=== PATIENT | male | born 1940 | race Caucasian/White ===

== ENCOUNTER 2021-08-29 14:05 | Inpatient (IN) | payer MEDICARE, OTHER ==
[~2021-08-29] VITALS: Ht 165.1 cm; Wt 75.0 kg
[2021-08-29] MEDS ORDERED: LORazepam 2 mg/ml vial IV ONE (14:10)
[2021-08-29 14:27] LABS: BASOPHILS % (AUTO) 0.5 % (0-1); EOSINOPHILS # (AUTO) 0.1 X10'3 (0-0.9); EOSINOPHILS % (AUTO) 1.1 % (0-6); HEMATOCRIT 32.8 % (42.0-52.0); LYMPHOCYTES # (AUTO) 1.5 X10'3 (1.1-4.8); MEAN CORPUSCULAR HEMOGLOBIN 34.7 PG (27.0-31.0); MEAN CORPUSCULAR HGB CONC 33.6 g/dL (33.0-36.5); MEAN CORPUSCULAR VOLUME 103.2 FL (78-98); MEAN PLATELET VOLUME 8.4 FL (7.4-10.4); MONOCYTES # (AUTO) 0.6 X10'3 (0-0.9); MONOCYTES % (AUTO) 6.3 % (2-12); NEUTROPHILS # (AUTO) 6.6 X10'3 (1.8-7.7); NEUTROPHILS % (AUTO) 75.1 % (42-75); PLATELET COUNT 236 X10'3 (140-440); RED BLOOD COUNT 3.18 X10'6 (4.70-6.10); RED CELL DISTRIBUTION WIDTH 13.7 % (11.5-14.5); WHITE BLOOD COUNT 8.8 X10'3 (4.5-11.0)
--- NOTE | 2021-08-29 14:36 | NUR ---
GWYN KUNZ (DAUGHTER) [phone]
[2021-08-29 14:39] LABS: ALANINE AMINOTRANSFERASE 12 U/L (12-78); ALBUMIN 3.9 G/DL (3.4-5.0); ALBUMIN/GLOBULIN RATIO 1.3 (1.1-1.5); ALKALINE PHOSPHATASE 52 IU/L (46-116); ANION GAP 20 (8-16); ASPARTATE AMINO TRANSFERASE 16 U/L (10-37); BILIRUBIN,TOTAL 0.5 MG/DL (0.1-1.0); BLOOD UREA NITROGEN 18 MG/DL (7-18); BUN/CREATININE RATIO 5.4 (5.4-32.0); CALCIUM 8.9 MG/DL (8.5-10.1); CHLORIDE 98 MMOL/L (99-107); CREATININE 3.35 MG/DL (0.60-1.10); GLUCOSE 164 MG/DL (70-104); SODIUM 140 MMOL/L (135-145); TOTAL CARBON DIOXIDE 22.4 MMOL/L (24-32); eGFR 18 ML/MIN
--- NOTE | 2021-08-29 14:40 | NUR ---
TO CT AT THIS TIME VIA [facility].
[2021-08-29 14:41] LABS: PLATELET ESTIMATE NORMAL; POTASSIUM 2.9 MMOL/L (3.5-5.1); TOTAL CELLS COUNTED 100
--- NOTE | 2021-08-29 15:00 | NUR ---
BACK FROM CT AT THIS TIME VIA [facility], NO SIGNS OF DISTRESS NOTED, VSS.
[2021-08-29] MEDS ORDERED: NITR0.4T51 SL (15:13)
[2021-08-29] MEDS ORDERED: ASPI-611 PO (15:13)
[2021-08-29] MEDS ORDERED: ISOS60TA71 PO (15:13)
[2021-08-29] MEDS ORDERED: CARB1TAB24 PO (15:13)
[2021-08-29] MEDS ORDERED: FLO0.4C PO (15:13)
[2021-08-29] MEDS ORDERED: FURO-149 PO (15:13)
[2021-08-29] MEDS ORDERED: CLOP75TA33 PO (15:13)
[2021-08-29] MEDS ORDERED: LOP12.5T PO (15:13)
[2021-08-29] MEDS ORDERED: ATOR40TA71 PO (15:13)
[2021-08-29] MEDS ORDERED: OMEP-50 PO (15:13)
[2021-08-29] MEDS ORDERED: CALC667T6 PO (15:13)
[2021-08-29] MEDS ORDERED: FINA5TAB11 PO (15:13)
[2021-08-29] MEDS ORDERED: magnesium 4gm in 100ml NS 100 ML IV PRN (16:40)
[2021-08-29] MEDS ORDERED: ondansetron/PF 4mg/2ml inj IV PRN (16:40)
[2021-08-29] MEDS ORDERED: magnesium Cl slow-release 64mg tablet PO PRN (16:40)
[2021-08-29] MEDS ORDERED: magnesium 2GM in 50ml NS 50 ML IV PRN (16:40)
[2021-08-29] MEDS ORDERED: potassium CL 10mEq/100ml bag 100 ML IV PRN (16:40)
[2021-08-29] MEDS ORDERED: potassium Cl 20 mEq SR tablet PO PRN (16:40)
[2021-08-29 16:44] LABS: CLARITY,URINE SLIGHTLY CLOUDY (Clear); GLUCOSE, URINE NEGATIVE (Neg); KETONES,URINE NEGATIVE (Neg); LEUKOCYTE ESTERASE ,URINE NEGATIVE (Neg); NITRITES, URINE NEGATIVE (Neg); OCCULT BLOOD,URINE MODERATE (Neg); PROTEIN,URINE 30 mg/dl (Neg); UROBILINOGEN,URINE 0.2 E.U/dL (0.2-1.0)
[2021-08-29 16:48] LABS: COLOR,URINE STRAW (Yellow); UA COLLECTION TYPE STRAIGHT CATH
[2021-08-29 16:50] LABS: SQUAMOUS EPITHELIAL CELL,UR FEW /LPF (FEW)
[2021-08-29 16:52] LABS: COARSE GRANULAR CAST 0-3 /LPF (NEGATIVE); FINE GRANULAR CAST 0-3 /LPF (NEGATIVE); RBC,URINE 0-2 /HPF (0-2); WBC,URINE 0-4 /HPF (0-4)
[2021-08-29 16:53] LABS: RENAL CELLS, URINE FEW /HPF; TRANSITIONAL EPI CELLS,URINE FEW /HPF
[2021-08-29 16:54] LABS: AMORPHOUS URATES 2+; MUCUS STRANDS FEW /LPF (Neg)
[2021-08-29] MEDS ORDERED: DONE-46 PO (16:54)
[2021-08-29 16:55] LABS: BACTERIA,URINE NONE SEEN /HPF (Neg)
[2021-08-29 16:58] LABS: MAGNESIUM 2.2 MG/DL (1.5-2.4)
--- NOTE | 2021-08-29 18:50 | NUR ---
PATIENT RESTING QUIETLY IN BED ON HIS SIDE, VITALS ARE STABLE AT THIS TIME.
[2021-08-29] MEDS: K and/or MAG REPLACEMENT MC SCH (20:00)
[2021-08-29 22:30] VITALS: BP 158/62
[2021-08-29] MEDS: potassium Cl 20 mEq SR tablet PO PRN (23:16)
[2021-08-30] VITALS (8 sets, daily range): BP systolic 106–209; BP diastolic 45–85
[2021-08-30] MEDS: potassium Cl 20 mEq SR tablet PO PRN (04:34)
[2021-08-30] MEDS: LORazepam 2 mg/ml vial IV PRN (04:34)
[2021-08-30 05:59] LABS: BASOPHILS % (AUTO) 0.3 % (0-1); EOSINOPHILS % (AUTO) 0.2 % (0-6); HEMATOCRIT 33.1 % (42.0-52.0); HEMOGLOBIN 11.4 g/dl (14.0-17.9); LYMPHOCYTES # (AUTO) 0.8 X10'3 (1.1-4.8); LYMPHOCYTES % (AUTO) 6.1 % (21-51); MEAN CORPUSCULAR HEMOGLOBIN 34.5 PG (27.0-31.0); MEAN CORPUSCULAR HGB CONC 34.4 g/dL (33.0-36.5); MEAN CORPUSCULAR VOLUME 100.2 FL (78-98); MEAN PLATELET VOLUME 8.7 FL (7.4-10.4); MONOCYTES # (AUTO) 1.1 X10'3 (0-0.9); NEUTROPHILS # (AUTO) 11.4 X10'3 (1.8-7.7); NEUTROPHILS % (AUTO) 85.4 % (42-75); PLATELET COUNT 228 X10'3 (140-440); RED CELL DISTRIBUTION WIDTH 13.7 % (11.5-14.5); WHITE BLOOD COUNT 13.4 X10'3 (4.5-11.0)
[2021-08-30 06:17] LABS: ALBUMIN 3.9 G/DL (3.4-5.0); ANION GAP 11 (8-16); BLOOD UREA NITROGEN 25 MG/DL (7-18); BUN/CREATININE RATIO 6.2 (5.4-32.0); CALCIUM 9.2 MG/DL (8.5-10.1); CHLORIDE 101 MMOL/L (99-107); CREATININE 4.05 MG/DL (0.60-1.10); GLUCOSE 103 MG/DL (70-104); POTASSIUM 3.7 MMOL/L (3.5-5.1); SODIUM 140 MMOL/L (135-145); TOTAL CARBON DIOXIDE 27.6 MMOL/L (24-32); eGFR 14 ML/MIN
--- NOTE | 2021-08-30 06:52 | NUR ---
Patient in room PCU 3023. I have received report from thai castillo and had the opportunity to ask questions and assume patient care.
[2021-08-30] MEDS: K and/or MAG REPLACEMENT MC SCH ×2 (08:00→20:00)
--- NOTE | 2021-08-30 13:13 | NUR ---
PAGER ID: [phone] MESSAGE: Aliya castillo [phone] re: Tony Zendejas [id number]. Pts BP 178/78. Please advise. Thank you.
[2021-08-30] MEDS ORDERED: hydrALAZINE 20mg/ml inj. IV ONE (14:30)
[2021-08-30] MEDS ORDERED: nitroGLYCERIN 0.4mg SUBLingual tab SL PRN (15:10)
[2021-08-30] MEDS ORDERED: donepezil 5mg tablet PO SCH (15:10)
[2021-08-30] MEDS: finasteride 5mg tablet PO SCH (16:23)
[2021-08-30] MEDS: carbidoba-levodopa 25-100mg tablet PO SCH ×2 (16:24→20:48)
[2021-08-30] MEDS: hydrALAZINE 20mg/ml inj. IV PRN (16:40)
[2021-08-30 16:45] LABS: PHOSPHORUS 2.8 MG/DL (2.3-4.5)
[2021-08-30] MEDS: calcium acetate 667mg (phosLO) tablet PO SCH (18:00)
--- NOTE | 2021-08-30 18:59 | NUR ---
1800 phoslo med non-admin per family request as well as patient ate 0% dinner
--- NOTE | 2021-08-30 19:08 | NUR ---
Problems reprioritized. Patient report given, questions answered & plan of care reviewed with thai castillo.
[2021-08-30] MEDS ORDERED: PERFLUTREN PROTEIN-A MICROSPHR (Optison) 0.22 MG/ML 3ML VIAL IV ONE (20:00)
[2021-08-30] MEDS: isosorbide dinitrate 30mg tablet PO SCH (20:38)
[2021-08-30] MEDS: metoprolol tartrate 12.5mg (1/2 tablet) PO SCH (20:44)
[2021-08-30] MEDS: tamsulosin 0.4mg capsule PO SCH (20:48)
[2021-08-30] MEDS: furosemide 40mg tablet PO SCH (20:51)
[2021-08-31] MEDS: LORazepam 2 mg/ml vial IV PRN (01:04)
[2021-08-31 02:00] VITALS: BP 146/63
[2021-08-31 06:00] VITALS: BP 190/84
[2021-08-31] MEDS: carbidoba-levodopa 25-100mg tablet PO SCH ×4 (07:58→20:05)
[2021-08-31] MEDS: isosorbide dinitrate 30mg tablet PO SCH ×2 (08:00→20:07)
[2021-08-31] MEDS: K and/or MAG REPLACEMENT MC SCH ×2 (08:00→20:00)
[2021-08-31] MEDS ORDERED: heparin 1,000 units/ml 10ml inj IV ONE (08:00)
[2021-08-31] MEDS ORDERED: albumin (human) 25% 100ml IV 100 ML IV PRN (08:00)
[2021-08-31] MEDS ORDERED: heparin 1,000unit/ml 10ml vial 10 ML IV ONE (08:00)
[2021-08-31] MEDS: aspirin 81mg, enteric-coated 1 TAB TABLET.DR PO SCH (08:01)
[2021-08-31] MEDS: metoprolol tartrate 12.5mg (1/2 tablet) PO SCH ×2 (08:02→20:06)
[2021-08-31] MEDS: atorvastatin 20mg tablet PO SCH (08:02)
[2021-08-31] MEDS: pantoprazole 40mg Tablet.DR PO SCH (08:03)
[2021-08-31] MEDS: furosemide 40mg tablet PO SCH ×2 (08:03→20:05)
[2021-08-31] MEDS: finasteride 5mg tablet PO SCH (08:06)
[2021-08-31] MEDS: calcium acetate 667mg (phosLO) tablet PO SCH (08:06)
[2021-08-31 09:06] LABS: BASOPHILS % (AUTO) 0.4 % (0-1); EOSINOPHILS % (AUTO) 0.1 % (0-6); HEMOGLOBIN 12.4 g/dl (14.0-17.9); LYMPHOCYTES # (AUTO) 0.5 X10'3 (1.1-4.8); MEAN CORPUSCULAR HGB CONC 33.4 g/dL (33.0-36.5); MEAN CORPUSCULAR VOLUME 101.9 FL (78-98); MEAN PLATELET VOLUME 8.6 FL (7.4-10.4); MONOCYTES # (AUTO) 0.5 X10'3 (0-0.9); MONOCYTES % (AUTO) 3.8 % (2-12); NEUTROPHILS # (AUTO) 11.2 X10'3 (1.8-7.7); NEUTROPHILS % (AUTO) 91.7 % (42-75); PLATELET COUNT 221 X10'3 (140-440); RED BLOOD COUNT 3.64 X10'6 (4.70-6.10); RED CELL DISTRIBUTION WIDTH 14.1 % (11.5-14.5); WHITE BLOOD COUNT 12.2 X10'3 (4.5-11.0)
[2021-08-31 09:12] LABS: ALBUMIN 3.9 G/DL (3.4-5.0); ANION GAP 16 (8-16); BLOOD UREA NITROGEN 40 MG/DL (7-18); CHLORIDE 100 MMOL/L (99-107); CREATININE 5.69 MG/DL (0.60-1.10); GLUCOSE 131 MG/DL (70-104); MAGNESIUM 2.2 MG/DL (1.5-2.4); POTASSIUM 3.9 MMOL/L (3.5-5.1); SODIUM 141 MMOL/L (135-145); TOTAL CARBON DIOXIDE 24.7 MMOL/L (24-32); eGFR 10 ML/MIN
[2021-08-31] MEDS: calcium acetate 667mg (PhosLO) capsule PO SCH ×3 (09:46→18:04)
[2021-08-31 11:00] VITALS: BP 160/77
[2021-08-31 15:00] VITALS: BP 178/77
[2021-08-31 18:00] VITALS: BP 192/86
--- NOTE | 2021-08-31 18:23 | NUR ---
Problems reprioritized. Patient report given, questions answered & plan of care reviewed with Mackenzie VENTURA .
--- NOTE | 2021-08-31 18:30 | NUR ---
Patient in room PCU 3023. I have received report from Tawny VENTURA and had the opportunity to ask questions and assume patient care.
[2021-08-31] MEDS: tamsulosin 0.4mg capsule PO SCH (20:09)
[2021-08-31 22:00] VITALS: BP 177/76
[2021-08-31] MEDS: hydrALAZINE 20mg/ml inj. IV PRN (22:16)
[2021-09-01 02:00] VITALS: BP 167/69
--- NOTE | 2021-09-01 06:33 | NUR ---
Patient in room PCU 3023. I have received report from Mackenzie VENTURA and had the opportunity to ask questions and assume patient care.
--- NOTE | 2021-09-01 06:56 | NUR ---
Problems reprioritized. Patient report given, questions answered & plan of care reviewed with Brooklynn VENTURA.
[2021-09-01] MEDS: pantoprazole 40mg Tablet.DR PO SCH (07:30)
[2021-09-01] MEDS ORDERED: heparin 1,000unit/ml 10ml vial 10 ML IV ONE (08:00)
[2021-09-01] MEDS: isosorbide dinitrate 30mg tablet PO SCH ×2 (08:00→20:34)
[2021-09-01] MEDS: furosemide 40mg tablet PO SCH ×2 (08:00→20:34)
[2021-09-01] MEDS: aspirin 81mg, enteric-coated 1 TAB TABLET.DR PO SCH (08:00)
[2021-09-01] MEDS ORDERED: albumin (human) 25% 100ml IV 100 ML IV PRN (08:00)
[2021-09-01] MEDS: K and/or MAG REPLACEMENT MC SCH ×2 (08:00→20:00)
[2021-09-01] MEDS: metoprolol tartrate 12.5mg (1/2 tablet) PO SCH ×2 (08:00→20:34)
[2021-09-01] MEDS: finasteride 5mg tablet PO SCH (08:00)
[2021-09-01] MEDS: calcium acetate 667mg (PhosLO) capsule PO SCH ×3 (08:00→17:37)
[2021-09-01] MEDS ORDERED: heparin 1,000 units/ml 10ml inj IV ONE (08:00)
[2021-09-01] MEDS ORDERED: EPOETIN ALFA-EPBX 20,000 UNIT/ML 1 ML MDV IV ONE (08:00)
[2021-09-01] MEDS: carbidoba-levodopa 25-100mg tablet PO SCH ×4 (08:00→20:35)
[2021-09-01] MEDS: atorvastatin 20mg tablet PO SCH (08:00)
[2021-09-01 08:10] LABS: BASOPHILS % (AUTO) 0.4 % (0-1); EOSINOPHILS # (AUTO) 0.1 X10'3 (0-0.9); HEMATOCRIT 34.7 % (42.0-52.0); HEMOGLOBIN 11.9 g/dl (14.0-17.9); LYMPHOCYTES # (AUTO) 0.8 X10'3 (1.1-4.8); LYMPHOCYTES % (AUTO) 7.1 % (21-51); MEAN CORPUSCULAR HEMOGLOBIN 34.7 PG (27.0-31.0); MEAN CORPUSCULAR HGB CONC 34.2 g/dL (33.0-36.5); MEAN CORPUSCULAR VOLUME 101.7 FL (78-98); MEAN PLATELET VOLUME 9.1 FL (7.4-10.4); MONOCYTES # (AUTO) 0.8 X10'3 (0-0.9); MONOCYTES % (AUTO) 7.9 % (2-12); NEUTROPHILS % (AUTO) 83.6 % (42-75); PLATELET COUNT 213 X10'3 (140-440); RED BLOOD COUNT 3.42 X10'6 (4.70-6.10); RED CELL DISTRIBUTION WIDTH 14.1 % (11.5-14.5); WHITE BLOOD COUNT 10.8 X10'3 (4.5-11.0)
[2021-09-01 08:17] LABS: ALBUMIN 3.6 G/DL (3.4-5.0); ANION GAP 9 (8-16); BLOOD UREA NITROGEN 39 MG/DL (7-18); BUN/CREATININE RATIO 7.3 (5.4-32.0); CALCIUM 9.9 MG/DL (8.5-10.1); CHLORIDE 99 MMOL/L (99-107); CREATININE 5.33 MG/DL (0.60-1.10); GLUCOSE 99 MG/DL (70-104); MAGNESIUM 2.2 MG/DL (1.5-2.4); POTASSIUM 3.8 MMOL/L (3.5-5.1); SODIUM 137 MMOL/L (135-145); TOTAL CARBON DIOXIDE 29.1 MMOL/L (24-32); eGFR 10 ML/MIN
--- NOTE | 2021-09-01 09:28 | NUR ---
Nutrition consult: re " renal formula diet" Pt currently on Renal diet per w/ recommendations for Puree NTL per LINE SERVICE SUPERVISOR today. Will continue to monitor. Addendum: 09/01/21 at [address] Amended: Links added.
[2021-09-01] MEDS ORDERED: LIDOcaine 1% (10mg/ml) 2ml vial SQ ONE (09:30)
--- NOTE | 2021-09-01 09:33 | NUR ---
information technology intern advised to hold meds until dialysis, patient infiltrated his fistula yesterday and they will let me know how it looks when they check on him this morning.
--- NOTE | 2021-09-01 11:45 | NUR ---
Family at bedside, daughter asking many questions and is concerned. Dialysis present at bedside. MRI to be done this afternoon if possible after dialysis.
[2021-09-01 13:21] VITALS: BP 160/83
--- NOTE | 2021-09-01 15:47 | NUR ---
Held patients blood pressure medications in anticipation of dialysis this morning. BP at this time 105/60, non admined
--- NOTE | 2021-09-01 16:16 | NUR ---
Patient back from MRI
--- NOTE | 2021-09-01 17:07 | NUR ---
PAGER ID: [phone] MESSAGE: [id number], Cristiana patient had a small tonic clonic seizure witnessed by cnas, when patient was admitted neurologist reccomended Keppra 500mg daily and 500 additional after dialysis, this was never ordered. Can we please get this? bina [phone]
[2021-09-01] MEDS ORDERED: levetiracetam inj 500 MG in normal saline 100ml IV soln 95 ML IV PRN (17:15)
--- NOTE | 2021-09-01 17:18 | NUR ---
sight effects specialist made me aware after my break that patient had a seizure after dialysis, nursing staff present for this and stated it was about 10 seconds of jerking movements and the patient came to after they verbally calmed him down. VSS at this time, reviewed neuro consult note and noted that they reccomended 500mg of keppra to be given daily and an additional 500mg after dialysis. This has never been ordered, spoke with Dr. Can and Dr. Dickinson about what had occured and keppra is ordered daily, first dose to be given tonight.
--- NOTE | 2021-09-01 17:33 | NUR ---
Patient had another witnessed episode while I was in room, patient lifts up out of bed and shakes arms and legs, episode last approximately 20 seconds at most, able to calm with verbal cues.
--- NOTE | 2021-09-01 17:36 | NUR ---
Patient not appropriate to swallow at this time sinemet and phoslo non administered; post ictal.
--- NOTE | 2021-09-01 18:35 | NUR ---
Problems reprioritized. Patient report given, questions answered & plan of care reviewed with
--- NOTE | 2021-09-01 18:41 | NUR ---
Patient in room PCU 3023. I have received report from Brooklynn VENTURA and had the opportunity to ask questions and assume patient care.
[2021-09-01] MEDS ORDERED: levetiracetam inj 500 MG in normal saline 100ml IV soln 95 ML IV SCH (20:00)
[2021-09-01] MEDS: tamsulosin 0.4mg capsule PO SCH (20:34)
[2021-09-01 22:00] VITALS: BP 94/55
[2021-09-01 22:09] VITALS: BP 94/55
[2021-09-02 02:11] VITALS: BP 121/70
--- NOTE | 2021-09-02 03:57 | NUR ---
patient's HS blood sugar not taken due to resource nurse being pulled to admit patients without fiction and nonfiction writer prose being made aware
[2021-09-02 06:13] LABS: BASOPHILS % (AUTO) 0.3 % (0-1); EOSINOPHILS % (AUTO) 0.2 % (0-6); HEMATOCRIT 35.4 % (42.0-52.0); HEMOGLOBIN 12.4 g/dl (14.0-17.9); LYMPHOCYTES % (AUTO) 10.9 % (21-51); MEAN CORPUSCULAR HEMOGLOBIN 35.5 PG (27.0-31.0); MEAN CORPUSCULAR HGB CONC 35.1 g/dL (33.0-36.5); MEAN CORPUSCULAR VOLUME 101.1 FL (78-98); MEAN PLATELET VOLUME 8.8 FL (7.4-10.4); MONOCYTES # (AUTO) 0.7 X10'3 (0-0.9); MONOCYTES % (AUTO) 7.9 % (2-12); NEUTROPHILS # (AUTO) 7.4 X10'3 (1.8-7.7); NEUTROPHILS % (AUTO) 80.7 % (42-75); PLATELET COUNT 225 X10'3 (140-440); RED CELL DISTRIBUTION WIDTH 13.9 % (11.5-14.5); WHITE BLOOD COUNT 9.2 X10'3 (4.5-11.0)
[2021-09-02 06:30] VITALS: BP 160/69
[2021-09-02 06:45] LABS: ALBUMIN 3.7 G/DL (3.4-5.0); ANION GAP 13 (8-16); BLOOD UREA NITROGEN 31 MG/DL (7-18); BUN/CREATININE RATIO 6.7 (5.4-32.0); CALCIUM 9.5 MG/DL (8.5-10.1); CHLORIDE 102 MMOL/L (99-107); CREATININE 4.63 MG/DL (0.60-1.10); GLUCOSE 106 MG/DL (70-104); MAGNESIUM 2.4 MG/DL (1.5-2.4); POTASSIUM 4.6 MMOL/L (3.5-5.1); SODIUM 141 MMOL/L (135-145); TOTAL CARBON DIOXIDE 26.4 MMOL/L (24-32); eGFR 12 ML/MIN
--- NOTE | 2021-09-02 06:50 | NUR ---
Patient in room PCU 3023. I have received report from AUDREY England and had the opportunity to ask questions and assume patient care.
--- NOTE | 2021-09-02 06:57 | NUR ---
Problems reprioritized. Patient report given, questions answered & plan of care reviewed with Mabel RN.
[2021-09-02] MEDS: K and/or MAG REPLACEMENT MC SCH ×2 (08:00→20:00)
[2021-09-02] MEDS: calcium acetate 667mg (PhosLO) capsule PO SCH ×3 (08:00→17:44)
[2021-09-02 09:07] LABS: HEMOGLOBIN A1C 5.4 % (4.5-6.2)
[2021-09-02] MEDS: pantoprazole 40mg Tablet.DR PO SCH (10:24)
[2021-09-02] MEDS: levetiracetam inj 500 MG in normal saline 100ml IV soln 100 ML IV SCH (10:24)
[2021-09-02] MEDS: isosorbide dinitrate 30mg tablet PO SCH ×2 (10:25→22:44)
[2021-09-02] MEDS: carbidoba-levodopa 25-100mg tablet PO SCH ×4 (10:25→22:45)
[2021-09-02] MEDS: aspirin 81mg, enteric-coated 1 TAB TABLET.DR PO SCH (10:25)
[2021-09-02] MEDS: atorvastatin 20mg tablet PO SCH (10:25)
[2021-09-02] MEDS: metoprolol tartrate 12.5mg (1/2 tablet) PO SCH ×2 (10:25→22:45)
[2021-09-02] MEDS: furosemide 40mg tablet PO SCH ×2 (10:25→22:44)
[2021-09-02] MEDS: finasteride 5mg tablet PO SCH (10:26)
[2021-09-02 11:00] VITALS: BP 162/60
[2021-09-02 13:07] LABS: HBSAG SCREEN Negative (Negative)
[2021-09-02 15:00] VITALS: BP 133/59
--- NOTE | 2021-09-02 18:20 | NUR ---
Problems reprioritized. Patient report given, questions answered & plan of care reviewed with AUDREY England.
[2021-09-02 18:30] VITALS: BP 136/65
[2021-09-02] MEDS ORDERED: ALOG12.5 PO (18:32)
--- NOTE | 2021-09-02 18:46 | NUR ---
Patient in room PCU 3023. I have received report from Mabel VENTURA and had the opportunity to ask questions and assume patient care.
[2021-09-02 22:00] VITALS: BP 165/71
[2021-09-02] MEDS: tamsulosin 0.4mg capsule PO SCH (22:48)
[2021-09-03] VITALS (7 sets, daily range): BP systolic 121–170; BP diastolic 51–93
[2021-09-03] MEDS: hydrALAZINE 20mg/ml inj. IV PRN (04:18)
[2021-09-03 06:29] LABS: BASOPHILS % (AUTO) 0.3 % (0-1); EOSINOPHILS # (AUTO) 0.2 X10'3 (0-0.9); HEMATOCRIT 34.4 % (42.0-52.0); HEMOGLOBIN 11.8 g/dl (14.0-17.9); LYMPHOCYTES # (AUTO) 0.7 X10'3 (1.1-4.8); LYMPHOCYTES % (AUTO) 7.9 % (21-51); MEAN CORPUSCULAR HGB CONC 34.4 g/dL (33.0-36.5); MEAN CORPUSCULAR VOLUME 101.8 FL (78-98); MEAN PLATELET VOLUME 8.8 FL (7.4-10.4); MONOCYTES # (AUTO) 0.7 X10'3 (0-0.9); MONOCYTES % (AUTO) 7.4 % (2-12); NEUTROPHILS # (AUTO) 7.7 X10'3 (1.8-7.7); NEUTROPHILS % (AUTO) 82.4 % (42-75); PLATELET COUNT 218 X10'3 (140-440); RED BLOOD COUNT 3.38 X10'6 (4.70-6.10); RED CELL DISTRIBUTION WIDTH 13.8 % (11.5-14.5); WHITE BLOOD COUNT 9.3 X10'3 (4.5-11.0)
--- NOTE | 2021-09-03 06:30 | NUR ---
Problems reprioritized. Patient report given, questions answered & plan of care reviewed with [].
--- NOTE | 2021-09-03 06:30 | NUR ---
Patient in room PCU 3023. I have received report from Tomás VENTURA and had the opportunity to ask questions and assume patient care.
--- NOTE | 2021-09-03 06:58 | NUR ---
Problems reprioritized. Patient report given, questions answered & plan of care reviewed with Sonja VENTURA.
[2021-09-03 07:05] LABS: ALBUMIN 3.6 G/DL (3.4-5.0); ANION GAP 13 (8-16); BLOOD UREA NITROGEN 55 MG/DL (7-18); BUN/CREATININE RATIO 8.7 (5.4-32.0); CALCIUM 9.9 MG/DL (8.5-10.1); CHLORIDE 97 MMOL/L (99-107); CREATININE 6.34 MG/DL (0.60-1.10); GLUCOSE 122 MG/DL (70-104); POTASSIUM 4.2 MMOL/L (3.5-5.1); SODIUM 139 MMOL/L (135-145); TOTAL CARBON DIOXIDE 29.1 MMOL/L (24-32); eGFR 8 ML/MIN
[2021-09-03] MEDS: isosorbide dinitrate 30mg tablet PO SCH ×2 (08:00→21:00)
[2021-09-03] MEDS: furosemide 40mg tablet PO SCH ×2 (08:00→21:01)
[2021-09-03] MEDS: calcium acetate 667mg (PhosLO) capsule PO SCH ×3 (08:00→18:00)
[2021-09-03] MEDS: K and/or MAG REPLACEMENT MC SCH ×2 (08:00→20:00)
[2021-09-03] MEDS: metoprolol tartrate 12.5mg (1/2 tablet) PO SCH ×2 (08:00→21:01)
[2021-09-03] MEDS: levetiracetam inj 500 MG in normal saline 100ml IV soln 100 ML IV SCH (08:03)
--- NOTE | 2021-09-03 08:26 | NUR ---
Spoke to Mell from [facility] after I tried to call the dialysis center. Per Mell, they cannot do the dialysis today because "it's Maria D day unless its an emergency!" I have told her that I do not have the order written at this time but Dr. Fuentes's note stated that next HD is Sunday which is today. Will let the facilities supervisor know when he make rounds
[2021-09-03] MEDS: pantoprazole 40mg Tablet.DR PO SCH (10:14)
[2021-09-03] MEDS: carbidoba-levodopa 25-100mg tablet PO SCH ×4 (10:14→21:01)
[2021-09-03] MEDS: finasteride 5mg tablet PO SCH (10:15)
[2021-09-03] MEDS: atorvastatin 20mg tablet PO SCH (10:16)
[2021-09-03] MEDS: aspirin 81mg, enteric-coated 1 TAB TABLET.DR PO SCH (10:17)
--- NOTE | 2021-09-03 12:54 | NUR ---
Dr. Fuentes notified about dialysis unable to get done today due to holiday. He said "its okay, will do it tomorrow!"
--- NOTE | 2021-09-03 14:51 | NUR ---
Shower cap with shampoo was applied on patient's head. Wash cloth, soap, warm water were provided to the patient's . volunteered to give patient a bed bath. I provided oral hygiene stuff like toothbrush, mouthwash, and toothpaste. Offered some help.
--- NOTE | 2021-09-03 18:38 | NUR ---
Problems reprioritized. Patient report given, questions answered & plan of care reviewed with Tomás VENTURA.
--- NOTE | 2021-09-03 18:39 | NUR ---
Patient in room PCU 3013. I have received report from Sonja VENTURA and had the opportunity to ask questions and assume patient care.
[2021-09-03] MEDS: tamsulosin 0.4mg capsule PO SCH (21:01)
[2021-09-03] MEDS ORDERED: levetiracetam inj 500 MG in normal saline 100ml IV soln 100 ML IV ONE (23:35)
[2021-09-03] MEDS ORDERED: LORazepam 2 mg/ml vial IV PRN (23:35)
--- NOTE | 2021-09-03 23:36 | NUR ---
4865 - [employer] informed short story writer that patient's HR was 160-190. staff entered the room to find the patient sideways in bed, listless and verbally unresponsive. patient was reoriented in bed, vitals were taken, as well as blood sugars. blood sugar was 136, vitals were WNL aside from HR in the 130's, and a blood pressure of 160/77. Dr. Pollard was notified of status change and assessed patient, thereafter ordering ativan and an additional dose of IV keppra for treatment of seizures. patient will be monitored closely for further seizure activity
[2021-09-04] MEDS ORDERED: diltiazem-NS 100mg/100ml 100 ML IV SCH (00:40)
[2021-09-04 02:00] VITALS: BP 144/81
--- NOTE | 2021-09-04 02:34 | NUR ---
Dr. Pollard was notified once again when patient's cardiac rhythm appeared to change per telemetry, a 12 point EKG was obtained and reviewed with Dr. Pollard. EKG had a degree of artifact due to patient being restless and moving despite prompting to be still. Dr. Pollard gave this curriculum writer orders for a troponin series and to initiate a cardizem drip. Responsibility of drip shared with Warner Deras RN - who was acting charge this shift - given curriculum writer's inexperience with this medication. Patient has been moved to rm 3015b for easier observation
--- NOTE | 2021-09-04 04:06 | NUR ---
patient has returned to sinus rhythm as of 334. sinus/ sinus tach and blood pressures are improving
--- NOTE | 2021-09-04 05:00 | NUR ---
First Troponin in series 824, second troponin 925. MD notified of results, no new orders placed
[2021-09-04 06:00] VITALS: BP 169/75
--- NOTE | 2021-09-04 06:30 | NUR ---
Problems reprioritized. Patient report given, questions answered & plan of care reviewed with Florinda VENTURA.
--- NOTE | 2021-09-04 07:27 | NUR ---
Patient in room PCU 3015. I have received report from Tomás VENTURA and had the opportunity to ask questions and assume patient care.
[2021-09-04] MEDS: calcium acetate 667mg (PhosLO) capsule PO SCH ×3 (08:00→18:00)
[2021-09-04] MEDS: K and/or MAG REPLACEMENT MC SCH ×2 (08:00→20:00)
[2021-09-04 08:36] LABS: BASOPHILS % (AUTO) 0.4 % (0-1); EOSINOPHILS % (AUTO) 0.3 % (0-6); HEMATOCRIT 33.9 % (42.0-52.0); HEMOGLOBIN 11.6 g/dl (14.0-17.9); LYMPHOCYTES # (AUTO) 0.7 X10'3 (1.1-4.8); LYMPHOCYTES % (AUTO) 6.3 % (21-51); MEAN CORPUSCULAR HGB CONC 34.4 g/dL (33.0-36.5); MONOCYTES # (AUTO) 0.6 X10'3 (0-0.9); MONOCYTES % (AUTO) 5.4 % (2-12); NEUTROPHILS # (AUTO) 9.6 X10'3 (1.8-7.7); NEUTROPHILS % (AUTO) 87.6 % (42-75); PLATELET COUNT 210 X10'3 (140-440); RED BLOOD COUNT 3.32 X10'6 (4.70-6.10); RED CELL DISTRIBUTION WIDTH 13.8 % (11.5-14.5)
[2021-09-04] MEDS ORDERED: normal saline 1000ml 250 ML IV PRN (08:40)
[2021-09-04] MEDS ORDERED: heparin 1,000 units/ml 10ml inj IV ONE (08:40)
[2021-09-04] MEDS ORDERED: heparin 1,000unit/ml 10ml vial 10 ML IV ONE (08:40)
[2021-09-04] MEDS ORDERED: heparin 1,000 units/ml 10ml inj HE ONE (08:45)
--- NOTE | 2021-09-04 08:54 | NUR ---
Paged Dr. Dickinson regarding troponin of 925. PAGER ID: [phone] MESSAGE: [id number], Cristiana Jimenez. Troponin 925 [facility] 2025
[2021-09-04] MEDS: finasteride 5mg tablet PO SCH (10:25)
[2021-09-04] MEDS: atorvastatin 20mg tablet PO SCH (10:26)
[2021-09-04] MEDS: isosorbide dinitrate 30mg tablet PO SCH ×2 (10:26→20:14)
[2021-09-04] MEDS: metoprolol tartrate 12.5mg (1/2 tablet) PO SCH ×2 (10:27→20:13)
[2021-09-04] MEDS: aspirin 81mg, enteric-coated 1 TAB TABLET.DR PO SCH (10:27)
[2021-09-04] MEDS: pantoprazole 40mg Tablet.DR PO SCH (10:27)
[2021-09-04] MEDS: furosemide 40mg tablet PO SCH ×2 (10:29→20:15)
[2021-09-04] MEDS: levetiracetam inj 500 MG in normal saline 100ml IV soln 100 ML IV SCH (10:30)
[2021-09-04 11:00] VITALS: BP 146/64
[2021-09-04] MEDS: carbidoba-levodopa 25-100mg tablet PO SCH ×4 (11:18→21:00)
--- NOTE | 2021-09-04 11:43 | NUR ---
Initial: Pt admitted w/ new onset seizures per EMR and has hx of ESRD on HD, last HD 09/01 w/ 2L out per documentation. Pt currently on Renal/Puree NTL diet per MD/CENTER MEDICAL DIRECTOR recs w/ low PO intake, 31% x 12 meals not meeting needs, pt noted to be lethargic at times. Pt may benefit from nectar thick Nepro TID to help meed needs while on HD. Pt noted to need minimal assistance w/ meals. LBM 09/02. Will continue to monitor and make recommendations as appropriate Recs: 1. Continue Renal/Puree NTL diet as tolerated per MD/CENTER MEDICAL DIRECTOR recs 2. Nepro TID; pending MD verification 3. Bowel care per rx 4. Scaled wts w/ dialysis Addendum: 09/04/21 at [address] Amended: Links added.
[2021-09-04] MEDS ORDERED: NUT.TX.IMP.RENAL FXN,LAC-REDUC (Nepro) 237 ML VANILLA PO SCH (13:00)
[2021-09-04] MEDS ORDERED: bisacodyl 5mg tablet.DR PO ONE (13:35)
[2021-09-04] MEDS: levetiracetam 250mg tablet PO SCH (14:49)
[2021-09-04 15:00] VITALS: BP_SYST 120; BP_SYST 129; BP_DIAS 54; BP_DIAS 60
--- NOTE | 2021-09-04 15:23 | NUR ---
Paged Dr. Dickinson regarding the heart rate of patient on cardizem drip. PAGER ID: [phone] MESSAGE: [id number], Tony Zendejas. Patient is on diltiazem drip running 5mg/hr, HR 52, BP 120/54, I paused the drip until further notice. Florinda [facility] [id number].
[2021-09-04 19:00] VITALS: BP 144/60
--- NOTE | 2021-09-04 19:38 | NUR ---
Problems reprioritized. Patient report given, questions answered & plan of care reviewed with Tracey RN, patient stable at transfer of care.
[2021-09-04] MEDS: docusate sod 100mg capsule PO SCH (20:14)
[2021-09-04 20:27] LABS: ALBUMIN 3.5 G/DL (3.4-5.0); ANION GAP 11 (8-16); BLOOD UREA NITROGEN 76 MG/DL (7-18); BUN/CREATININE RATIO 9.7 (5.4-32.0); CALCIUM 10.2 MG/DL (8.5-10.1); CHLORIDE 97 MMOL/L (99-107); GLUCOSE 124 MG/DL (70-104); POTASSIUM 4.3 MMOL/L (3.5-5.1); SODIUM 137 MMOL/L (135-145); TOTAL CARBON DIOXIDE 28.8 MMOL/L (24-32); eGFR 7 ML/MIN
[2021-09-04] MEDS: tamsulosin 0.4mg capsule PO SCH (21:35)
[2021-09-04 22:00] VITALS: BP 149/64
[2021-09-05 02:00] VITALS: BP 160/90
[2021-09-05 06:00] VITALS: BP 163/59
--- NOTE | 2021-09-05 06:23 | NUR ---
Problems reprioritized. Patient report given, questions answered & plan of care reviewed with Alma..
[2021-09-05] MEDS: K and/or MAG REPLACEMENT MC SCH ×2 (08:00→20:00)
[2021-09-05] MEDS: levetiracetam 250mg tablet PO SCH (08:38)
[2021-09-05] MEDS: carbidoba-levodopa 25-100mg tablet PO SCH ×4 (08:39→21:00)
[2021-09-05] MEDS: atorvastatin 20mg tablet PO SCH (08:40)
[2021-09-05] MEDS: aspirin 81mg, enteric-coated 1 TAB TABLET.DR PO SCH (08:41)
[2021-09-05] MEDS: metoprolol tartrate 12.5mg (1/2 tablet) PO SCH ×2 (08:41→20:00)
[2021-09-05] MEDS: isosorbide dinitrate 30mg tablet PO SCH ×2 (08:42→20:00)
[2021-09-05] MEDS: furosemide 40mg tablet PO SCH ×2 (08:42→20:00)
[2021-09-05] MEDS: calcium acetate 667mg (PhosLO) capsule PO SCH ×3 (08:43→18:00)
[2021-09-05] MEDS: pantoprazole 40mg Tablet.DR PO SCH (08:43)
[2021-09-05] MEDS: finasteride 5mg tablet PO SCH (08:46)
[2021-09-05] MEDS: docusate sod 100mg capsule PO SCH ×2 (08:47→20:00)
[2021-09-05] MEDS ORDERED: heparin 1,000 units/ml 10ml inj IV ONE (09:05)
[2021-09-05] MEDS ORDERED: LIDOcaine 1% (10mg/ml) 2ml vial SQ ONE (09:05)
[2021-09-05] MEDS ORDERED: normal saline 1000ml 250 ML IV PRN (09:05)
[2021-09-05] MEDS: LORazepam 2 mg/ml vial IV PRN ×3 (09:44→22:42)
--- NOTE | 2021-09-05 10:11 | NUR ---
Patient in room PCU 3015. I have received report from Tracey VENTURA and had the opportunity to ask questions and assume patient care.
[2021-09-05 11:00] VITALS: BP 157/75
[2021-09-05 15:00] VITALS: BP 169/69
--- NOTE | 2021-09-05 17:15 | NUR ---
PAGER ID: [phone] MESSAGE: Ashleigh Zendejas room 3019J is seizing. Please advise Alma ext [phone]
--- NOTE | 2021-09-05 17:17 | NUR ---
Patient had 6 minute seizure, advised Jose Martin who stated to give 2mg Ativan and obtain teleneuro consultation
[2021-09-05] MEDS ORDERED: LORazepam 2 mg/ml vial IV ONE (17:20)
[2021-09-05 18:00] VITALS: BP 193/68
--- NOTE | 2021-09-05 18:22 | NUR ---
PAGER ID: [phone] MESSAGE: Teleneuro for Tony Zendejas room 3015B wants 1000mg IV Keppra stat, EEG stat, CT head stat. CBC and CMP stat. as well as transfer to [facility]. Would you like me to put these orders in under your name? Please advise Alma ext [phone]
--- NOTE | 2021-09-05 18:50 | NUR ---
Problems reprioritized. Patient report given, questions answered & plan of care reviewed with Sia VENTURA.
[2021-09-05] MEDS ORDERED: levetiracetam inj 1,000 MG in normal saline 100ml IV soln 90 ML IV STA (19:27)
[2021-09-05 19:51] LABS: BASOPHILS % (AUTO) 0.4 % (0-1); EOSINOPHILS # (AUTO) 0.1 X10'3 (0-0.9); EOSINOPHILS % (AUTO) 0.8 % (0-6); HEMATOCRIT 32.5 % (42.0-52.0); HEMOGLOBIN 11.2 g/dl (14.0-17.9); LYMPHOCYTES # (AUTO) 0.6 X10'3 (1.1-4.8); LYMPHOCYTES % (AUTO) 6.5 % (21-51); MEAN CORPUSCULAR HEMOGLOBIN 34.4 PG (27.0-31.0); MEAN CORPUSCULAR HGB CONC 34.4 g/dL (33.0-36.5); MEAN CORPUSCULAR VOLUME 99.9 FL (78-98); MEAN PLATELET VOLUME 8.8 FL (7.4-10.4); MONOCYTES # (AUTO) 0.6 X10'3 (0-0.9); MONOCYTES % (AUTO) 6.5 % (2-12); NEUTROPHILS % (AUTO) 85.8 % (42-75); PLATELET COUNT 223 X10'3 (140-440); RED BLOOD COUNT 3.26 X10'6 (4.70-6.10); RED CELL DISTRIBUTION WIDTH 13.5 % (11.5-14.5); WHITE BLOOD COUNT 9.3 X10'3 (4.5-11.0)
[2021-09-05] MEDS ORDERED: levetiracetam 250mg tablet PO SCH (20:00)
[2021-09-05] MEDS: tamsulosin 0.4mg capsule PO SCH (21:00)
[2021-09-05 22:00] VITALS: BP 190/78
[2021-09-05] MEDS: hydrALAZINE 20mg/ml inj. IV PRN (22:43)
[2021-09-06 02:00] VITALS: BP 188/86
--- NOTE | 2021-09-06 05:48 | NUR ---
Patient in bed resting, no signs of distress or seizure noted at this time will continue to monitor and report changes
--- NOTE | 2021-09-06 05:50 | NUR ---
Continuous EEG in progress patient resting, sitter at bed side
[2021-09-06 05:59] LABS: BASOPHILS % (AUTO) 0.4 % (0-1); EOSINOPHILS % (AUTO) 0.2 % (0-6); HEMATOCRIT 34.3 % (42.0-52.0); HEMOGLOBIN 11.7 g/dl (14.0-17.9); LYMPHOCYTES # (AUTO) 0.6 X10'3 (1.1-4.8); LYMPHOCYTES % (AUTO) 5.8 % (21-51); MEAN CORPUSCULAR HEMOGLOBIN 34.4 PG (27.0-31.0); MEAN CORPUSCULAR HGB CONC 34.1 g/dL (33.0-36.5); MEAN CORPUSCULAR VOLUME 100.9 FL (78-98); MEAN PLATELET VOLUME 8.9 FL (7.4-10.4); MONOCYTES # (AUTO) 0.7 X10'3 (0-0.9); NEUTROPHILS # (AUTO) 8.3 X10'3 (1.8-7.7); NEUTROPHILS % (AUTO) 86.6 % (42-75); PLATELET COUNT 258 X10'3 (140-440); RED CELL DISTRIBUTION WIDTH 13.5 % (11.5-14.5); WHITE BLOOD COUNT 9.5 X10'3 (4.5-11.0)
[2021-09-06 06:00] VITALS: BP 82/98
[2021-09-06 06:11] LABS: ALANINE AMINOTRANSFERASE 7 U/L (12-78); ALBUMIN 3.6 G/DL (3.4-5.0); ALKALINE PHOSPHATASE 66 IU/L (46-116); ANION GAP 9 (8-16); ASPARTATE AMINO TRANSFERASE 8 U/L (10-37); BILIRUBIN,TOTAL 0.5 MG/DL (0.1-1.0); BLOOD UREA NITROGEN 37 MG/DL (7-18); BUN/CREATININE RATIO 7.1 (5.4-32.0); CALCIUM 9.2 MG/DL (8.5-10.1); CHLORIDE 101 MMOL/L (99-107); CREATININE 5.23 MG/DL (0.60-1.10); GLUCOSE 132 MG/DL (70-104); MAGNESIUM 2.1 MG/DL (1.5-2.4); PHOSPHORUS 2.4 MG/DL (2.3-4.5); POTASSIUM 4.2 MMOL/L (3.5-5.1); SODIUM 139 MMOL/L (135-145); TOTAL CARBON DIOXIDE 28.6 MMOL/L (24-32); TOTAL PROTEIN 7.1 G/DL (6.4-8.2); eGFR 11 ML/MIN
--- NOTE | 2021-09-06 06:18 | NUR ---
Problems reprioritized. Patient report given, questions answered & plan of care reviewed with Alma VENTURA .
--- NOTE | 2021-09-06 06:33 | NUR ---
Patient in room PCU 3015. I have received report from Sia VENTURA and had the opportunity to ask questions and assume patient care.
--- NOTE | 2021-09-06 07:25 | NUR ---
PAGER ID: [phone] MESSAGE: Latrell Zendejas room 1212J is not awake enough to take PO meds. Can they be changed to IV form? The hay sorter nurse held them all. I am concerned about him not receiving the keppra. Please advise. Alma Ext [phone]
[2021-09-06] MEDS: carbidoba-levodopa 25-100mg tablet PO SCH ×4 (08:00→21:00)
[2021-09-06] MEDS: metoprolol tartrate 12.5mg (1/2 tablet) PO SCH ×2 (08:00→20:00)
[2021-09-06] MEDS ORDERED: aspirin 300mg supp.rect RC SCH (08:00)
[2021-09-06] MEDS: atorvastatin 20mg tablet PO SCH (08:00)
[2021-09-06] MEDS: finasteride 5mg tablet PO SCH (08:00)
[2021-09-06] MEDS ORDERED: pantoprazole 40MG/NS 100ML BAG 100 ML IV SCH (08:00)
[2021-09-06] MEDS: docusate sod 100mg capsule PO SCH ×2 (08:00→20:00)
[2021-09-06] MEDS: isosorbide dinitrate 30mg tablet PO SCH ×2 (08:00→20:00)
[2021-09-06] MEDS: K and/or MAG REPLACEMENT MC SCH ×2 (08:00→20:00)
[2021-09-06] MEDS: calcium acetate 667mg (PhosLO) capsule PO SCH ×3 (08:00→18:00)
[2021-09-06] MEDS: levetiracetam inj 500 MG in normal saline 100ml IV soln 100 ML IV SCH ×2 (08:25→20:33)
[2021-09-06] MEDS: heparin, porcine 5000 units/ml vial SQ SCH ×2 (08:33→20:32)
[2021-09-06] MEDS: furosemide 20 MG/2 ML vial IV SCH ×2 (08:35→20:32)
[2021-09-06 11:00] VITALS: BP 190/92
--- NOTE | 2021-09-06 11:25 | NUR ---
PAGER ID: [phone] MESSAGE: Patient Tony Zendejas has a BP of 190/92 HR 93. Please advise Alma ext [phone]
[2021-09-06] MEDS: hydrALAZINE 20mg/ml inj. IV PRN ×3 (12:43→20:32)
[2021-09-06 15:00] VITALS: BP 195/94
[2021-09-06 15:48] VITALS: BP_SYST 195
--- NOTE | 2021-09-06 16:02 | NUR ---
Refugio call and gave report to Jun from the transfer center at [facility]
--- NOTE | 2021-09-06 17:20 | NUR ---
Requested follow up teleneuro consult at 1430 and have had the monitor at the patients beside since. Called [phone] to inquire about the patients place in the que for an assessment and was advised that the physician would be contacted.
--- NOTE | 2021-09-06 17:30 | NUR ---
Called report to Marisela VENTURA at [facility]
--- NOTE | 2021-09-06 17:58 | NUR ---
Was advised that transfer for [facility] room 5842G has been postponed due to flight conditions. [employer] states that they will keep him on the board and reevaluate flight conditions at 10PM
--- NOTE | 2021-09-06 18:24 | NUR ---
Problems reprioritized. Patient report given, questions answered & plan of care reviewed with Sia VENTURA.
[2021-09-06] MEDS: tamsulosin 0.4mg capsule PO SCH (21:00)
--- NOTE | 2021-09-06 22:29 | NUR ---
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
== END 2021-09-06 22:40 | disposition critical access hospital (66) | DRG 100 ==
LOC: ER 14:06 → EDBD 14:06 → ED HOLD 16:39 → PCU 3S 21:55
PROVIDERS: ADMIT Internal Medicine; ATTEND Internal Medicine
PROC: 4A10X4Z Monitoring of Central Nervous Electrical Activity, External Approach (ICD-10-PCS; 2021-08-30)
PROC: 5A1D70Z Performance of Urinary Filtration, Intermittent, Less than 6 Hours Per Day (ICD-10-PCS; principal; 2021-08-31)
PROC: 5A1D70Z Performance of Urinary Filtration, Intermittent, Less than 6 Hours Per Day (ICD-10-PCS; 2021-09-01)
PROC: 5A1D70Z Performance of Urinary Filtration, Intermittent, Less than 6 Hours Per Day (ICD-10-PCS; 2021-09-05)
PROC: 4A10X4Z Monitoring of Central Nervous Electrical Activity, External Approach (ICD-10-PCS; 2021-09-05)
DX: G40.89 Other seizures (principal); N18.6 End stage renal disease; I50.33 Acute on chronic diastolic (congestive) heart failure; I21.A1 Myocardial infarction type 2; G93.40 Encephalopathy, unspecified; I13.2 Hypertensive heart and chronic kidney disease with heart failure and with stage 5 chronic kidney disease, or end stage renal disease; G20 Parkinson's disease; F02.80 Dementia in other diseases classified elsewhere, unspecified severity, without behavioral disturbance, psychotic disturbance, mood disturbance, and anxiety; E78.5 Hyperlipidemia, unspecified; Z20.822 Contact with and (suspected) exposure to COVID-19; E11.22 Type 2 diabetes mellitus with diabetic chronic kidney disease; E87.6 Hypokalemia; I25.10 Atherosclerotic heart disease of native coronary artery without angina pectoris; K21.9 Gastro-esophageal reflux disease without esophagitis; N40.0 Benign prostatic hyperplasia without lower urinary tract symptoms; Z99.2 Dependence on renal dialysis; Z79.899 Other long term (current) drug therapy; Z79.82 Long term (current) use of aspirin; K59.00 Constipation, unspecified
CPT/HCPCS: 36415; 70450; 70544; 70551; 71045; 80048; 80053; 81001; 82948; 83036; 83605; 83735; 83880; 84100; 84146; 84443; 84484; 85007; 85025; 87040; 87081; 87340; 87635; 92508; 92616; 93005; 93306; 95720; 95816; 96374; 97110; 97116; 97161; 97530; 99285; C9113; G0257; G0378; J0360; J1644; J1940; J1953; J2060; J3490